=== PATIENT | female | born 1995 ===

== ENCOUNTER 2018-04-17 20:21 | Emergency (ER) | payer OTHER ==
[2018-04-17 20:56] VITALS: RESP 16; TEMP 97.4
[2018-04-17 21:19] VITALS: BP 115/75; PULSE 68; O2SAT 100
== END 2018-04-17 21:17 | disposition home or self-care (01) ==
LOC: ED 20:21
DX: G43.101 Migraine with aura, not intractable, with status migrainosus (principal); Z3A.01 Less than 8 weeks gestation of pregnancy
CPT/HCPCS: 99282

== ENCOUNTER 2018-10-03 18:20 | Emergency (ER) | payer OTHER ==
[2018-10-03] MEDS ORDERED: ONDANSETRON HCL 4 MG/2 ML SOL IV ONE (18:29)
[2018-10-03] MEDS ORDERED: SODIUM CHLORIDE 0.9% 1000 ML SOL IV SCH (18:30)
[2018-10-03 18:32] VITALS: RESP 20
[2018-10-03] MEDS ORDERED: PROMETHAZINE HYDROCHLORIDE 25 MG/ML SOL IV ONE (18:37)
[2018-10-03 18:49] LABS: BASOPHILS % (AUTO) 0 % (0-3); EOSINOPHILS % (AUTO) 1 % (0-9); HEMATOCRIT 34 % (35-47); HEMOGLOBIN 11.3 gm/dl (12.0-15.5); LYMPHOCYTES % (AUTO) 20.2 % (10-50); MEAN CORPUSCULAR HEMOGLOBIN 28.6 pg (27.0-32.0); MEAN CORPUSCULAR HGB CONC 33.4 gm/dl (32.0-36.0); MEAN CORPUSCULAR VOLUME 86 fL (81-99); MONOCYTES % (AUTO) 5.5 % (0-12); NEUTROPHILS % (AUTO) 73.3 % (37-80)
[2018-10-03] MEDS ORDERED: PROMETHAZINE HYDROCHLORIDE 25 MG/ML SOL ONE (18:50)
[2018-10-03 18:54] VITALS: TEMP 96.2
[2018-10-03 18:56] LABS: CALCIUM 8.4 mg/dl (8.5-10.1); CARBON DIOXIDE 22.5 mEq/L (21-32); CREATININE 0.6 mg/dl (0.60-1.00); POTASSIUM 3.7 mMol/L (3.5-5.1)
[2018-10-03 21:09] VITALS: BP 106/66; PULSE 82; O2SAT 99
== END 2018-10-03 21:00 | disposition home or self-care (01) ==
LOC: ED 18:20
DX: K52.9 Noninfective gastroenteritis and colitis, unspecified (principal)
CPT/HCPCS: 80048; 85025; 96365; 96366; 96374; 99283; 99284; J2550

== ENCOUNTER 2018-11-01 19:52 | Emergency (ER) | payer OTHER ==
[2018-11-01 20:10] VITALS: RESP 18
[2018-11-01] MEDS ORDERED: SODIUM CHLORIDE 0.9% FLUSH 10 ML SOL IV PRN (20:40)
[2018-11-01] MEDS ORDERED: SODIUM CHLORIDE 0.9% 1000ML 1,000 ML IV ONE ×2 (20:45)
[2018-11-01 20:52] LABS: BASOPHILS % (AUTO) 1 % (0-3); EOSINOPHILS % (AUTO) 1 % (0-9); HEMATOCRIT 33 % (35-47); HEMOGLOBIN 10.8 gm/dl (12.0-15.5); LYMPHOCYTES % (AUTO) 30.6 % (10-50); MEAN CORPUSCULAR HGB CONC 33.1 gm/dl (32.0-36.0); MEAN CORPUSCULAR VOLUME 84 fL (81-99); MONOCYTES % (AUTO) 5.3 % (0-12); NEUTROPHILS % (AUTO) 62.1 % (37-80)
[2018-11-01 20:57] LABS: APPEARANCE,URINE Clear; BILIRUBIN,URINE NEGATIVE (NEGATIVE); COLOR,URINE Yellow; GLUCOSE, URINE (UA) NEGATIVE (NEGATIVE); KETONES,URINE NEGATIVE (NEGATIVE); LEUKOCYTE ESTERASE ,URINE NEGATIVE (NEGATIVE); NITRATE,URINE NEGATIVE (NEGATIVE); OCCULT BLOOD,URINE NEGATIVE (NEG-TRACE); UROBILINOGEN,URINE 0.2 (0.2-1.0 EU)
[2018-11-01 21:16] LABS: BACTERIA NEGATIVE (< 1+); CRYSTALS NEGATIVE (0-3 AVE/HPF); EPITHELIAL CELLS 0-3 (SQUAMOUS); RBC,URINE NEG (0-3AV/HPF); WBC,URINE 0-2 (0-5AV/HPF)
[2018-11-01 22:12] VITALS: TEMP 97.9; O2SAT 99
[2018-11-01] MEDS ORDERED: AMPICILLIN 1 GM PDS 2 GM in SODIUM CHLORIDE 0.9% 100 ML 100 ML IV ONE (22:43)
[2018-11-01] MEDS ORDERED: BETAMETHASONE 6 MG/ML SUS IM SCH (22:45)
[2018-11-01 22:53] VITALS: BP 114/71; PULSE 90
[2018-11-01] MEDS ORDERED: AMPICILLIN 1 GM PDS ONE (23:00)
[2018-11-01] MEDS ORDERED: BETAMETHASONE 6 MG/ML SUS ONE (23:01)
== END 2018-11-01 23:45 | disposition short-term general hospital (02) ==
LOC: ED 19:52
DX: R10.9 Unspecified abdominal pain (principal); Z3A.34 34 weeks gestation of pregnancy
CPT/HCPCS: 59025; 81001; 82731; 85025; 87210; 96365; 96366; 96372; 99284; 99285; J0290; J0702

== ENCOUNTER 2018-12-18 00:15 | Inpatient (IN) | payer BC, OTHER ==
[2018-12-18] MEDS ORDERED: LACTATED RINGERS 1,000 ML IV ONE (02:09)
[2018-12-18] MEDS: SODIUM CHLORIDE 0.9% FLUSH 10 ML SOL IV SCH ×3 (02:15→18:28)
[2018-12-18] MEDS ORDERED: SODIUM CHLORIDE 0.9% FLUSH 10 ML SOL IV PRN (02:41)
[2018-12-18] MEDS ORDERED: METHYLERGONOVINE MALEATE 0.2 MG/ML SOL IM PRN (02:41)
[2018-12-18] MEDS ORDERED: CARBOPROST 250 MCG/ML SOL IM PRN (02:41)
[2018-12-18] MEDS ORDERED: OXYTOCIN 10000 MU/ML SOL IM PRN (02:41)
[2018-12-18] MEDS ORDERED: LACTATED RINGERS 1,000 ML IV PRN (02:41)
[2018-12-18] MEDS ORDERED: MEPIVACAINE HCL 1% MPF 30 ML/VIAL SOL INFIL PRN (02:41)
[2018-12-18] MEDS ORDERED: FENTANYL 100MCG/2ML SOL IV PRN (02:41)
[2018-12-18] MEDS ORDERED: NALBUPHINE HCL 20 MG/ML SOL IV PRN (22:06)
[2018-12-18] MEDS ORDERED: NALOXONE HYDROCHLORIDE 0.4 MG/ML SOL IV PRN (22:06)
[2018-12-18] MEDS ORDERED: EPHEDRINE SULFATE 50 MG/ML SOL IV PRN (22:06)
[2018-12-18] MEDS ORDERED: DIPHENHYDRAMINE 50 MG/ML SOL IV PRN (22:06)
[2018-12-18] MEDS ORDERED: LIDOCAINE HCL 2% MPF 10 ML SOL ONE (22:08)
[2018-12-18] MEDS ORDERED: FENTANYL 250 MCG/ 5ML SOL ONE (22:08)
[2018-12-18] MEDS ORDERED: ROPIVACAINE HYDROCHLORIDE 5 MG/ML SOL ONE (22:08)
[2018-12-18] MEDS: LACTATED RINGERS 1,000 ML IV SCH ×3 (22:44→23:17)
[2018-12-19] MEDS ORDERED: TERBUTALINE SULFATE 1 MG/ML SOL SC PRN (00:39)
[2018-12-19] MEDS ORDERED: LACTATED RINGERS 1,000 ML IV SCH (00:45)
[2018-12-19] MEDS ORDERED: OXYTOCIN 10000 MU/ML 20,000 MU in LACTATED RINGERS 1,000 ML IV SCH (00:45)
[2018-12-19] MEDS: SODIUM CHLORIDE 0.9% FLUSH 10 ML SOL IV SCH ×2 (03:33→11:59)
[2018-12-19] MEDS: LACTATED RINGERS 1,000 ML IV SCH (07:00)
[2018-12-19 11:17] LABS: BASOPHILS % (AUTO) 1 % (0-3); EOSINOPHILS % (AUTO) 1 % (0-9); HEMATOCRIT 32 % (35-47); HEMOGLOBIN 10.3 gm/dl (12.0-15.5); LYMPHOCYTES % (AUTO) 26.4 % (10-50); MEAN CORPUSCULAR HEMOGLOBIN 26.8 pg (27.0-32.0); MEAN CORPUSCULAR HGB CONC 31.9 gm/dl (32.0-36.0); MEAN CORPUSCULAR VOLUME 84 fL (81-99); MONOCYTES % (AUTO) 5.4 % (0-12); NEUTROPHILS % (AUTO) 66.5 % (37-80)
[2018-12-19] MEDS ORDERED: BENZOCAINE/MENTHOL 1 SPR TOP PRN (11:22)
[2018-12-19] MEDS ORDERED: APAP/HYDROCODONE 1 EACH TABLET PO PRN (11:22)
[2018-12-19] MEDS ORDERED: TEMAZEPAM 15MG 15 MG CAP PO PRN (11:22)
[2018-12-19] MEDS ORDERED: FLEET ENEMA PR PRN (11:22)
[2018-12-19] MEDS ORDERED: METHYLERGONOVINE MALEATE 0.2 MG TAB PO PRN (11:22)
[2018-12-19] MEDS ORDERED: BISACODYL 10 MG SUP PR PRN (11:22)
[2018-12-19] MEDS ORDERED: WITCH HAZEL 1 EA PAD TOP PRN (11:22)
[2018-12-19] MEDS: IBUPROFEN 600 MG TAB PO PRN (19:48)
[2018-12-19] MEDS: DOCUSATE SODIUM 100 MG SGL PO SCH (20:00)
[2018-12-19] MEDS ORDERED: MULTIVITAMIN2 1 EA TAB PO SCH (21:00)
[2018-12-19] MEDS ORDERED: FOLIC ACID 1 MG TAB PO SCH (21:00)
[2018-12-20 00:24] VITALS: RESP 18
[2018-12-20] MEDS: SODIUM CHLORIDE 0.9% FLUSH 10 ML SOL IV SCH (00:40)
[2018-12-20] MEDS: IBUPROFEN 600 MG TAB PO PRN ×2 (07:53→16:26)
[2018-12-20 07:58] VITALS: O2SAT 99
[2018-12-20] MEDS: DOCUSATE SODIUM 100 MG SGL PO SCH (08:23)
[2018-12-20 17:02] VITALS: BP 121/79; PULSE 87; TEMP 98.7
== END 2018-12-20 19:30 | disposition home or self-care (01) | DRG 560 ==
LOC: OBSVTOIN 00:15 → OB 00:15
PROVIDERS: ADMIT Family Medicine; ATTEND Family Medicine
PROC: 10907ZC Drainage of Amniotic Fluid, Therapeutic from Products of Conception, Via Natural or Artificial Opening (ICD-10-PCS; 2018-12-18)
PROC: 0U7C7ZZ Dilation of Cervix, Via Natural or Artificial Opening (ICD-10-PCS; 2018-12-18)
PROC: 10E0XZZ Delivery of Products of Conception, External Approach (ICD-10-PCS; principal; 2018-12-19)
PROC: 0HQ9XZZ Repair Perineum Skin, External Approach (ICD-10-PCS; 2018-12-19)
PROC: 6A550ZT Pheresis of Cord Blood Stem Cells, Single (ICD-10-PCS; 2018-12-19)
DX: O80 Encounter for full-term uncomplicated delivery (principal); Z37.0 Single live birth; Z3A.41 41 weeks gestation of pregnancy
CPT/HCPCS: 36415; 59025; 85018; 85025; J0670; J2590; J2795; J3010; A9270-GY